=== PATIENT | male | born 1945 | race Asian ===

== ENCOUNTER 2024-09-25 11:06 | Emergency (ER) | payer MEDICARE, OTHER ==
[~2024-09-25] VITALS: Ht 157.5 cm; Wt 47.6 kg
[2024-09-25] MEDS ORDERED: SODIUM CHLORIDE FLUSH 10 ML SYR IV PRN (12:00)
[2024-09-25 12:16] LABS: BASOPHILS # (AUTO) 0.1 (0.0-0.1); BASOPHILS % 1.1 % (0.0-1.0); EOSINOPHILS % 0.2 % (0.0-6.0); HEMATOCRIT 40.8 % (38.2-49.6); HEMOGLOBIN 14.9 g/dL (14.0-18.0); LYMPHOCYTES # (AUTO) 1.2 (1.0-3.2); LYMPHOCYTES % 21.3 % (18.0-39.1); MEAN CORPUSCULAR HEMOGLOBIN 30.5 pg (28-32); MEAN CORPUSCULAR HGB CONC 36.5 g/dL (31-35); MEAN CORPUSCULAR VOLUME 83.6 fL (81-99); MONOCYTES # (AUTO) 1.3 (0.2-0.8); MONOCYTES % 24.6 % (4.4-11.3); NEUTROPHILS # (AUTO) 2.9 (2.1-6.9); NEUTROPHILS % 52.6 % (38.7-80.0); PLATELET COUNT 244 x10e3/uL (140-360); RED BLOOD COUNT 4.88 x10e6/uL (4.3-5.7); RED CELL DISTRIBUTION WIDTH 12.3 % (11.7-14.4); WHITE BLOOD COUNT 5.45 x10e3/uL (4.8-10.8)
[2024-09-25 12:39] LABS: ALBUMIN 3.2 g/dL (3.5-5.0); ALBUMIN/GLOBULIN RATIO 0.6 (0.8-2.0); ANION GAP 14.6 mmol/L (8-16); BILIRUBIN,TOTAL 1.1 mg/dL (0.2-1.2); CALCIUM 8.6 mg/dL (8.4-10.2); CREATININE, SERUM 0.91 mg/dL (0.72-1.25); POTASSIUM 3.6 mmol/L (3.5-5.1); TOTAL PROTEIN 8.2 g/dL (6.5-8.1)
[2024-09-25 12:44] LABS: INFLUENZA A AG NEGATIVE (NEGATIVE); INFLUENZA B AG NEGATIVE (NEGATIVE)
[2024-09-25 12:45] LABS: CORONAVIRUS COVID-19 AG POSITIVE (NEGATIVE); TROPONIN I 0.012 ng/mL (0-0.300)
[2024-09-25 12:46] LABS: LYMPHOCYTES % (MANUAL) 15 % (19-48); MONOCYTES % (MANUAL) 24 % (3.4-9.0); NEUTROPHILS % (MANUAL) 61 % (40-74); PLATELET ESTIMATE ADEQUATE; PLATELET MORPHOLOGY COMMENT NORMAL; RBC MORPHOLOGY COMMENT NORMAL
[2024-09-25] MEDS: SODIUM CHLORIDE 0.9% 500ML 500 ML IV ONE (12:50)
[2024-09-25] MEDS: KETOROLAC TROMETHAMINE 30 MG/ML VIAL IV STA (12:51)
[2024-09-25] MEDS ORDERED: PAXLOVID 300-11 EAC1 PO (13:28)
[2024-09-25 13:52] VITALS: PULSE 70; RESP 18; TEMP 98.4; O2SAT 95
== END 2024-09-25 14:00 | disposition home or self-care (01) ==
LOC: ER 11:31
DX: R06.02 Shortness of breath (principal); U07.1 COVID-19; R05.9 Cough, unspecified; R53.81 Other malaise; I10 Essential (primary) hypertension; E11.65 Type 2 diabetes mellitus with hyperglycemia; E03.9 Hypothyroidism, unspecified; I49.5 Sick sinus syndrome; Z95.810 Presence of automatic (implantable) cardiac defibrillator
CPT/HCPCS: 36415; 71046; 80053; 83605; 83880; 84484; 85025; 87040; 87428; 93005; 94760; 99284; J1885; J7040

== ENCOUNTER 2025-04-16 13:06 | Emergency (ER) | payer MEDICARE, OTHER ==
[~2025-04-16] VITALS: Ht 157.5 cm; Wt 49.5 kg
[~2025-04-16 13:06] MED LIST: PAXLOVID 300-11 EAC1 PO
[2025-04-16] MEDS: LACTATED RINGER'S 1,000 ML INJ ONE (13:52)
[2025-04-16] MEDS ORDERED: ONDANSETRON HCL INJ 2MG/ML 2ML 2 MG/ML VIAL ONE (14:22)
[2025-04-16] MEDS: SODIUM CHLORIDE 0.9% 500ML 500 ML IV STA ×2 (14:29→15:00)
[2025-04-16] MEDS: FAMOTIDINE 20 MG/2 ML VIAL IV ONE (15:00)
[2025-04-16] MEDS: ONDANSETRON HCL INJ 2MG/ML 2ML 2 MG/ML VIAL IV STA (15:37)
[2025-04-16] MEDS ORDERED: ONDANSETRON ODT4 MG PO (15:49)
[2025-04-16] MEDS ORDERED: BACLOFEN10 MG PO (15:49)
[2025-04-16] MEDS: CHLORPROMAZINE HCL INJ 25 MG/ML AMP INJ ONE (16:23)
[2025-04-16 16:47] VITALS: PULSE 63; RESP 14; TEMP 97.4; O2SAT 96
[2025-04-16] MEDS: METOCLOPRAMIDE HCL 10 MG/2ML VIAL IV ONE (17:04)
[2025-04-16 20:48] LABS: OSMOLALITY,SERUM 237 mOsm/kg (278-305)
== END 2025-04-16 16:47 | disposition home or self-care (01) ==
LOC: FSED 13:16
DX: R53.1 Weakness (principal); K80.20 Calculus of gallbladder without cholecystitis without obstruction; E87.8 Other disorders of electrolyte and fluid balance, not elsewhere classified; E87.1 Hypo-osmolality and hyponatremia; R06.6 Hiccough; Z11.52 Encounter for screening for COVID-19; R94.31 Abnormal electrocardiogram [ECG] [EKG]
CPT/HCPCS: 0223U; 36415; 71250; 74176; 80048; 80076; 82947; 83880; 83930; 84295; 84436; 84443; 84520; 85025; 85379; 87400; 93005; 96374; 96375; 99284; J1308; J2405; J2765; J3230; J7040; J7121

== ENCOUNTER 2025-04-19 17:45 | Emergency (ER) | payer MEDICARE, OTHER ==
[~2025-04-19 17:45] MED LIST changes: +BACLOFEN10 MG PO; +ONDANSETRON ODT4 MG PO
[2025-04-19 17:50] VITALS: PULSE 63; RESP 20; TEMP 97.5
[2025-04-19 19:09] VITALS: BP 173/80; PULSE 56; RESP 16; TEMP 97.5; O2SAT 96
== END 2025-04-19 19:09 | disposition home or self-care (01) ==
LOC: FSED 17:48
DX: R53.1 Weakness (principal); R51.9 Headache, unspecified; R53.81 Other malaise; R53.83 Other fatigue; I10 Essential (primary) hypertension; E11.65 Type 2 diabetes mellitus with hyperglycemia; E03.9 Hypothyroidism, unspecified; H81.09 Meniere's disease, unspecified ear; Z95.810 Presence of automatic (implantable) cardiac defibrillator
CPT/HCPCS: 70450; 80053; 81003; 85025; 99283